=== PATIENT | female | born 1965 | race Caucasian/White ===

== ENCOUNTER 2016-10-01 13:58 | Emergency (ER) | payer OTHER ==
[~2016-10-01] VITALS: Ht 154.9 cm; Wt 93.0 kg
[~2016-10-01 13:58] MED LIST: ANTIVERT 25 MG25 MG PO; BENADRYL25 MG PO; CELEBREX100 M1 PO; DOCUSATE SODIU100 M3 PO; HYDROCHLOROTHIA25 M1 PO; IBUPROFEN800 MG PO; LORATADINE10 M1 PO; MYRBETRIQ25 MG PO; NORVASC 5MG TAB5 MG PO; PERCOCET 325 MG1 TA2 PO; VALIUM5 M2 PO; VENTOLIN1 PUF INH; VICODIN5-300 PO
[2016-10-01 14:10] VITALS: BP 148/93
== END 2016-10-01 15:50 | disposition admitted as inpatient to this hospital (09) ==
LOC: ERH 13:58
DX: R07.89 Other chest pain (principal)
CPT/HCPCS: 93005; 93010; 99281